=== PATIENT | male | born 1985 | race Caucasian/White ===

== ENCOUNTER 2017-10-06 14:24 | Emergency (ER) | payer OTHER ==
[~2017-10-06] VITALS: Ht 172.7 cm; Wt 69.0 kg
[~2017-10-06 14:24] MED LIST: HYDR-565 PO; IBUP-1986 PO
[2017-10-06 14:38] VITALS: BP 117/55
== END 2017-10-06 15:23 | disposition home or self-care (01) ==
LOC: ER 14:25
DX: S21.012A Laceration without foreign body of left breast, initial encounter (principal); G89.29 Other chronic pain; Z88.2 Allergy status to sulfonamides; Z88.1 Allergy status to other antibiotic agents; W31.9XXA Contact with unspecified machinery, initial encounter; Y93.89 Activity, other specified; Y92.89 Other specified places as the place of occurrence of the external cause; Y99.8 Other external cause status
CPT/HCPCS: 99282

== ENCOUNTER 2024-07-29 18:06 | Emergency (ER) | payer OTHER ==
[~2024-07-29] VITALS: Ht 172.7 cm; Wt 70.8 kg
[~2024-07-29 18:06] MED LIST changes: +HYDR-4353 PO; -HYDR-565 PO
[2024-07-29] MEDS ORDERED: DIAZ5TAB PO (19:17)
[2024-07-29 19:44] VITALS: BP 120/62; PULSE 72; RESP 18; TEMP 98.6; O2SAT 99
== END 2024-07-29 19:45 | disposition home or self-care (01) ==
LOC: ER 18:06
DX: T63.301A Toxic effect of unspecified spider venom, accidental (unintentional), initial encounter (principal); Y92.89 Other specified places as the place of occurrence of the external cause
CPT/HCPCS: 99283